=== PATIENT | female | born 1955 | race African-American/Black ===

== ENCOUNTER → 2016-09-12 | Outpatient (CLI) | payer MEDICAID ==
[~2016-09-12] MED LIST: ALBUTEROL HFA INH; BACTRIM DS TABL1 TA1 PO; CENTRUM PO; FLEXERIL10 MG PO; IBUPROFEN800 MG PO; NO MEDICATIONS; NORCO 10/3251 TAB PO; PROMETHAZINE D118 ML PO; VIT B-12; VOLTAREN75 MG PO
--- NOTE | ~2016-09-12 | MY11 ---
[facility] A Service of [facility] RADIOLOGY TEXT RESULTS PATIENT: NAIF KEITH LOCATION: [facility] : 55 UNIT #: [id number] AGE: [address]: Williams Huber MD SEX: F ORDER DR: [id number] [facility] [place] [address] [place], [place] [address] [id number] O MR#: [id number] Acc #: [id number] NAME: NAIF KEITH : 1955 SEX: F STUDY DATE/TIME: 09/12/2016 9:52 UNIT: [facility] ROOM: STUDY DESCRIPTION: MY Mammogram Screening Dig Nacho Attending Physician: Williams Huber M.D. Ordering Physician: Williams Huber M.D. Primary Care Physician: Williams Huber M.D. MEDICAL IMAGING REPORT This report is preliminary unless electronic signature is present EXAM Bilateral digital screening mammogram CAD 09/12/2016 INDICATIONS 61-year-old female for routine screening. No reported problems and no personal or family history of breast cancer. History of needle core biopsy 7 years ago on the right. TECHNIQUE CC and MLO views of the breast were obtained and reviewed with an approved CAD device. COMPARISON 10/06/2014, 08/25/2013. FINDINGS Breast parenchyma is composed of heterogeneously dense breast tissue, this degrades sensitivity of screening mammography. Pattern is unchanged. There is a biopsy clip in the posterior lower inner hemisphere right breast unchanged. There is no new dominant nodule mass or suspicious cluster of microcalcifications. IMPRESSION Benign screening mammogram. 1 year followup recommended. Patients over the age of 40 are entered into a reminder system with target due date for the next mammogram. A result letter will also be sent to the patient. BIRADS: 2 Benign findings. Dictated by... Marbin Muniz M.D. [facility] A Service of [facility] RADIOLOGY TEXT RESULTS PATIENT: NAIF KEITH LOCATION: [facility] : 55 UNIT #: [id number] AGE: [address]: Williams Huber MD SEX: F ORDER DR: THIS IS AN ELECTRONICALLY VERIFIED REPORT Marbin Muniz M.D. at 09/12/2016 4:51 PM CHRISTINE/contreras TD: 09/12/2016 12:37 JOB #: [id number] MEDICAL IMAGING REPORT COPY
== END | disposition home or self-care (01) ==
LOC: CWCC 09:34
DX: Z12.31 Encounter for screening mammogram for malignant neoplasm of breast (principal); Z98.890 Other specified postprocedural states
CPT/HCPCS: G0202

== ENCOUNTER 2016-10-31 10:38 | Emergency (ER) | payer MEDICAID | END 2016-10-31 12:08 | disposition home or self-care (01) | LOC: SED 10:38 | DX: H61.20 Impacted cerumen, unspecified ear (principal); Z90.710 Acquired absence of both cervix and uterus | CPT/HCPCS: 82947; 99283 ==

== ENCOUNTER 2017-01-29 11:38 | Emergency (ER) | payer MEDICAID ==
--- NOTE | ~2017-01-29 | CR126 ---
[facility] A Service [facility] RADIOLOGY TEXT RESULTS PATIENT: NAIF KEITH LOCATION: SED : 55 UNIT #: [id number] AGE: [address]: Guillaume Dempsey MD SEX: F ORDER DR: [id number] [place] [id number] E MR#: [id number] Acc #: [id number] NAME: NAIF KEITH : 1955 SEX: F STUDY DATE/TIME: 01/29/2017 12:20 UNIT: SED ROOM: STUDY DESCRIPTION: CR Foot Complete Min 3 View Lt Attending Physician: Guillaume Dempsey M.D. Ordering Physician: Guillaume Dempsey M.D. Primary Care Physician: Wliliams Huber M.D. MEDICAL IMAGING REPORT This report is preliminary unless electronic signature is present. EXAM Left foot 3 views 01/29/2017, 1220 hours. CLINICAL HISTORY 61-year-old woman with fyk-nh-czvqu day history of swollen ankles. No known injury. COMPARISON None. FINDINGS AP, lateral and oblique views demonstrate overall normal bone density. There is mild hallux valgus deformity and mild bunion formation. There is no fracture. IMPRESSION No foot fracture or periosteal reaction. There is mild hallux valgus deformity and mild bunion formation. Dictated by... Sapna Barajas M.D. THIS IS AN ELECTRONICALLY VERIFIED REPORT Sapna Barajas M.D. at 02/01/2017 2:34 PM Leda TD: 01/29/2017 21:25 JOB #: [id number] MEDICAL IMAGING REPORT [facility] A [facility] RADIOLOGY TEXT RESULTS PATIENT: NAIF KEITH LOCATION: SED : 55 UNIT #: [id number] AGE: [address]: Guillaume Dempsey MD SEX: F ORDER DR: Page 1 of 1
--- NOTE | ~2017-01-29 | CR127 ---
[facility] A Service of [facility] RADIOLOGY TEXT RESULTS PATIENT: NAIF KEITH LOCATION: SED : 55 UNIT #: [id number] AGE: [address]: Guillaume Dempsey MD SEX: F ORDER DR: [id number] [place] [id number] E MR#: [id number] Acc #: [id number] NAME: NAIF KEITH : 1955 SEX: F STUDY DATE/TIME: 01/29/2017 12:20 UNIT: SED ROOM: STUDY DESCRIPTION: CR Foot Complete Min 3 View Rt Attending Physician: Guillaume Dempsey M.D. Ordering Physician: Guillaume Dempsey M.D. Primary Care Physician: Williams Huber M.D. MEDICAL IMAGING REPORT This report is preliminary unless electronic signature is present. EXAM Right foot 3 views, 01/29/2017 1220 hours HISTORY 61-year-old woman with 2-3 day history of swollen ankles bilaterally. No reported injury. COMPARISON None. FINDINGS AP, lateral and oblique views demonstrate normal bone density. There is no fracture. There is mild bunion formation at the distal first metatarsal. There is spurring at the anterior process of the talus. IMPRESSION No fracture seen. No significant soft tissue swelling of the foot. Dictated by... Sapna Barajas M.D. THIS IS AN ELECTRONICALLY VERIFIED REPORT Sapna Barajas M.D. at 01/30/2017 9:23 AM DAMIÁN/el TD: 01/29/2017 21:15 JOB #: [id number] MEDICAL IMAGING REPORT Page 1 of 1
== END 2017-01-29 14:00 | disposition home or self-care (01) ==
LOC: SED 11:38
DX: M19.072 Primary osteoarthritis, left ankle and foot (principal); M19.071 Primary osteoarthritis, right ankle and foot; Z90.710 Acquired absence of both cervix and uterus; Z87.891 Personal history of nicotine dependence
CPT/HCPCS: 73630; 82947; 99284